=== PATIENT | female | born 1980 | race Two or more races ===

== ENCOUNTER 2022-08-13 17:14 | Emergency (ER) | payer MEDICAID ==
[~2022-08-13] VITALS: Ht 165.1 cm; Wt 58.0 kg
[2022-08-13 17:23] VITALS: BP 103/65; O2SAT 100
[2022-08-13] MEDS ORDERED: PREDNISONE 20MG TABLET PO STA (18:44)
[2022-08-13] MEDS ORDERED: IPRATROPIUM BROMIDE (0.02%) 0.5MG/2.5ML NEB HHN STA (18:44)
[2022-08-13] MEDS ORDERED: ALBUTEROL (0.083%) 2.5MG/3ML NEB HHN STA (18:44)
[2022-08-13 19:06] VITALS: PULSE 80; RESP 18
[2022-08-13 19:32] LABS: BASOPHILS % 2.8 % (0.0-2.0); HEMATOCRIT. 25.6 % (36.0-48.0); HEMOGLOBIN. 7.9 g/dL (12.0-16.0); LYMPHOCYTES % 29.6 % (20.0-50.0); MEAN CORPUSCULAR HEMOGLOBIN 21.2 pg (28.0-32.0); MEAN CORPUSCULAR VOLUME 68.9 fL (81.0-99.0); MEAN PLATELET VOLUME 7.1 fl (7.4-10.4); MONOCYTES % 6.6 % (2.0-8.0); PLATELET 421 x1000/uL (130-400); RED BLOOD CELL COUNT 3.72 mill/uL (4.2-5.4); RED CELL DISTRIBUTION WIDTH 16.6 % (11.6-14.6)
[2022-08-13 19:35] LABS: CHLORIDE 109 mEq/L (98-107)
[2022-08-13] MEDS ORDERED: P50 MT (21:23)
[2022-08-13] MEDS ORDERED: ALBU6.7H3 INH (21:23)
[2022-08-13 21:25] LABS: PLATELET ESTIMATE SLIGHTLY INCREASED
[2022-08-13 21:32] VITALS: PULSE 80; RESP 18; TEMP 97.7
== END 2022-08-13 21:33 | disposition home or self-care (01) ==
LOC: ER 17:49
DX: J45.901 Unspecified asthma with (acute) exacerbation (principal); D64.9 Anemia, unspecified
CPT/HCPCS: 80053; 83880; 85025; 84484; 36415; 71045; 94640; 93005; 99285; J7512; Z7610 ×3

== ENCOUNTER 2022-08-20 18:27 | Emergency (ER) | payer MEDICAID ==
[~2022-08-20] VITALS: Ht 162.6 cm; Wt 60.0 kg
[~2022-08-20 18:27] MED LIST: ALBU6.7H3 INH; P50 MT
[2022-08-20 18:53] VITALS: TEMP 98.6; O2SAT 98
[2022-08-20 20:23] LABS: BASOPHILS % 2.1 % (0.0-2.0); LYMPHOCYTES % 31.4 % (20.0-50.0); MEAN CORPUSCULAR HEMOGLOBIN 21.2 pg (28.0-32.0); MONOCYTES % 6.1 % (2.0-8.0); NEUTROPHILS % 57.4 % (40.0-76.0); PLATELET 384 x1000/uL (130-400); RED BLOOD CELL COUNT 3.77 mill/uL (4.2-5.4); RED CELL DISTRIBUTION WIDTH 17.1 % (11.6-14.6)
[2022-08-20 20:32] LABS: CHLORIDE 106 mEq/L (98-107)
[2022-08-20 20:34] LABS: PROTHROMBIN TIME 10.5 sec (9.6-11.0)
[2022-08-20 20:38] LABS: HCG SCREEN NEGATIVE
[2022-08-20 21:01] LABS: PLATELET ESTIMATE NORMAL
[2022-08-20] MEDS ORDERED: METOCLOPRAMIDE HCL 10MG/2ML VIAL IV ONE (22:45)
[2022-08-20] MEDS ORDERED: ACETAMINOPHEN 325MG TABLET PO ONE (22:45)
[2022-08-20] MEDS ORDERED: SODIUM CHLORIDE 0.9% 1,000 ML IV ONE (22:45)
[2022-08-21] MEDS ORDERED: ACET-2708 MT (01:11)
[2022-08-21 01:53] VITALS: BP 109/61; PULSE 67; RESP 13
== END 2022-08-21 01:57 | disposition home or self-care (01) ==
LOC: ER 18:27
DX: D64.9 Anemia, unspecified (principal); R10.32 Left lower quadrant pain
CPT/HCPCS: 99285; 74176; 96374; 96361; 80053; 84703; 83690; 85025; 85610; 86850; 86900; 86901; 36415; J2765; J7030

== ENCOUNTER 2023-03-12 12:55 | Emergency (ER) | payer MEDICAID ==
[~2023-03-12] VITALS: Ht 157.5 cm; Wt 54.0 kg
[~2023-03-12 12:55] MED LIST changes: +ACET-2708 MT; +FERR325T6 MT; -P50 MT
[2023-03-12 13:07] VITALS: O2SAT 99
[2023-03-12 14:09] LABS: CLARITY URINE CLEAR (CLEAR); COLOR URINE YELLOW (YELLOW); GLUCOSE URINE NEGATIVE (NEGATIVE); KETONES URINE NEGATIVE (NEGATIVE); LEUKOCYTE ESTERASE URINE NEGATIVE (NEGATIVE); NITRITE URINE NEGATIVE (NEGATIVE); OCCULT BLOOD URINE NEGATIVE (NEGATIVE); PROTEIN URINE NEGATIVE (NEGATIVE); SPECIFIC GRAVITY URINE 1.009 (1.005-1.030); UROBILINOGEN URINE 0.2 E.U./dL (0.2-1.0)
[2023-03-12 14:29] LABS: *AMPHETAMINES SCREEN URINE NEGATIVE (NEGATIVE); *BARBITURATES SCREEN URINE NEGATIVE (NEGATIVE); *BENZODIAZEPINES SCREEN URINE NEGATIVE (NEGATIVE); *COCAINE SCREEN URINE NEGATIVE (NEGATIVE); CANNABINOID URINE SCREEN NEGATIVE (NEGATIVE); ECSTASY MDMA SCREEN URINE NEGATIVE (NEGATIVE); METHADONE URINE SCREEN Neg (NEGATIVE); OPIATES URINE SCREEN NEGATIVE (NEGATIVE); PHENCYCLIDINE URINE SCREEN NEGATIVE (NEGATIVE)
[2023-03-12 14:39] LABS: BASOPHILS % 3.1 % (0.0-2.0); EOSINOPHILS % 4.6 % (0.0-5.0); HEMATOCRIT. 31.7 % (36.0-48.0); LYMPHOCYTES % 31.3 % (20.0-50.0); MEAN CORPUSCULAR HEMOGLOBIN 26.3 pg (28.0-32.0); MEAN CORPUSCULAR HGB CONC 31.5 g/dL (31.0-37.0); MEAN CORPUSCULAR VOLUME 83.4 fL (81.0-99.0); MEAN PLATELET VOLUME 7.5 fl (7.4-10.4); MONOCYTES % 6.6 % (2.0-8.0); NEUTROPHILS % 54.4 % (40.0-76.0); PLATELET 350 x1000/uL (130-400); RED BLOOD CELL COUNT 3.81 mill/uL (4.2-5.4); RED CELL DISTRIBUTION WIDTH 16.9 % (11.6-14.6); WHITE BLOOD COUNT 4.4 x1000/uL (4.5-11.0)
[2023-03-12] MEDS ORDERED: PROCHLORPERAZINE MALEATE 10MG TABLET PO ONE (14:45)
[2023-03-12] MEDS ORDERED: DIPHENHYDRAMINE 25MG CAPSULE PO ONE (14:45)
[2023-03-12] MEDS ORDERED: KETOROLAC 60MG/2ML VIAL IM ONE (14:45)
[2023-03-12 14:50] LABS: HCG SCREEN NEGATIVE
[2023-03-12 15:08] LABS: ALANINE AMINOTRANSFERASE 8 IU/L (10-49); ALBUMIN 4.2 g/dL (3.2-4.8); ASPARTATE AMINOTRANSFERASE 20 IU/L (<34); BILIRUBIN TOTAL 0.5 mg/dL (0.1-1.0); CARBON DIOXIDE 29 mEq/L (21-32); CHLORIDE 105 mEq/L (98-107); CREATININE 0.7 mg/dL (0.6-1.0); GLUCOSE 80 mg/dL (70-105); POTASSIUM 4.4 mEq/L (3.5-5.1); PROTEIN TOTAL 6.5 g/dL (6.0-8.3); SODIUM 137 mEq/L (136-145); UREA NITROGEN BLOOD 11 mg/dL (9-23)
[2023-03-12 15:13] LABS: TROPONIN I HIGH SENSITIVITY < 4 ng/L (3.0-34)
[2023-03-12] MEDS ORDERED: DIPHENHYDRAMINE 25MG CAPSULE PO NR (16:45)
[2023-03-12] MEDS ORDERED: KETOROLAC 30MG/ML VIAL IM NR (16:45)
[2023-03-12] MEDS ORDERED: TOPUD PO (17:18)
[2023-03-12] MEDS ORDERED: IBUP-2028 MT (17:18)
[2023-03-12 17:45] VITALS: BP 134/74; PULSE 79; RESP 20; TEMP 98
== END 2023-03-12 17:46 | disposition home or self-care (01) ==
LOC: ER 12:55
DX: G43.109 Migraine with aura, not intractable, without status migrainosus (principal); D64.9 Anemia, unspecified; Z86.73 Personal history of transient ischemic attack (TIA), and cerebral infarction without residual deficits
CPT/HCPCS: 80053; 80305; 81003; 81025; 84703; 83690; 85025; 84484; 36415; 71045; 70450; 93005; 96372; 99285; Q0163; Q0164; J1885; Z7610

== ENCOUNTER 2023-04-09 08:26 | Emergency (ER) | payer MEDICAID ==
[~2023-04-09] VITALS: Ht 162.6 cm; Wt 63.0 kg
[~2023-04-09 08:26] MED LIST changes: +IBUP-2028 MT; +TOPUD PO
[2023-04-09 08:42] VITALS: O2SAT 99
[2023-04-09 11:49] VITALS: BP 113/65; PULSE 68; RESP 18; TEMP 98
== END 2023-04-09 11:54 | disposition home or self-care (01) ==
LOC: ER 09:28
DX: T16.1XXA Foreign body in right ear, initial encounter (principal); D64.9 Anemia, unspecified; Z86.73 Personal history of transient ischemic attack (TIA), and cerebral infarction without residual deficits; Z79.899 Other long term (current) drug therapy; X58.XXXA Exposure to other specified factors, initial encounter; Y93.89 Activity, other specified; Y92.89 Other specified places as the place of occurrence of the external cause; Y99.8 Other external cause status
CPT/HCPCS: 99281

== ENCOUNTER 2023-10-20 15:50 | Emergency (ER) | payer MEDICAID ==
[~2023-10-20] VITALS: Ht 165.1 cm; Wt 60.0 kg
[2023-10-20 16:00] VITALS: TEMP 98.1; O2SAT 99
[2023-10-20 16:31] LABS: BASOPHILS % 2.9 % (0.0-2.0); DIFFERENTIAL COMMENT 0; EOSINOPHILS % 3.1 % (0.0-5.0); HEMATOCRIT. 27.1 % (36.0-48.0); HEMOGLOBIN. 8.4 g/dL (12.0-16.0); LYMPHOCYTES % 27.7 % (20.0-50.0); MEAN CORPUSCULAR HEMOGLOBIN 21.9 pg (28.0-32.0); MEAN CORPUSCULAR HGB CONC 30.9 g/dL (31.0-37.0); MEAN CORPUSCULAR VOLUME 70.9 fL (81.0-99.0); MEAN PLATELET VOLUME 7.1 fl (7.4-10.4); MONOCYTES % 6.3 % (2.0-8.0); PLATELET 399 x1000/uL (130-400); RED BLOOD CELL COUNT 3.83 mill/uL (4.2-5.4); RED CELL DISTRIBUTION WIDTH 16.5 % (11.6-14.6); WHITE BLOOD COUNT 5.9 x1000/uL (4.5-11.0)
[2023-10-20 16:34] LABS: CHLORIDE 107 mEq/L (98-107); POTASSIUM 3.7 mEq/L (3.5-5.1); SODIUM 138 mEq/L (136-145)
[2023-10-20 16:35] LABS: CALCIUM 9.6 mg/dL (8.7-10.4); CARBON DIOXIDE 27 mEq/L (21-32)
[2023-10-20 16:40] LABS: CREATININE 0.6 mg/dL (0.6-1.0); GLUCOSE 86 mg/dL (70-105); UREA NITROGEN BLOOD 8 mg/dL (9-23)
[2023-10-20 16:42] LABS: ALANINE AMINOTRANSFERASE 13 IU/L (10-49); ALBUMIN 4.7 g/dL (3.2-4.8); ASPARTATE AMINOTRANSFERASE 24 IU/L (<34); BILIRUBIN DIRECT 0.1 mg/dL (<=3.0); BILIRUBIN TOTAL 0.5 mg/dL (0.1-1.0); HCG SCREEN NEGATIVE; PROTEIN TOTAL 7.1 g/dL (6.0-8.3)
[2023-10-20] MEDS: ONDANSETRON 4MG ODT PO ONE (20:09)
[2023-10-20] MEDS: HYDROCODONE/ACETAMINOPHEN 7.5/325MG TABLET PO ONE (20:09)
[2023-10-20] MEDS: SODIUM CHLORIDE 0.9% 1,000 ML IV ONE (20:36)
[2023-10-20 20:40] VITALS: BP 100/55; PULSE 70; RESP 18
[2023-10-20] MEDS: MORPHINE SULFATE 4 MG/ML INJ (FOR IV/IM USE) IV ONE (20:40)
[2023-10-20] MEDS: ONDANSETRON HCL 4MG/2ML INJ IV ONE (20:41)
== END 2023-10-21 02:45 | disposition home or self-care (01) ==
LOC: ER 15:59
DX: R10.30 Lower abdominal pain, unspecified (principal); Z86.73 Personal history of transient ischemic attack (TIA), and cerebral infarction without residual deficits
CPT/HCPCS: 80076; 80048; 84703; 85025; 36415; 74176; 96361; 96374; 96375; 99285; Q0162; J2405; J2270; Z7610 ×4; J7030

== ENCOUNTER 2023-12-28 05:56 | Emergency (ER) | payer MEDICAID ==
[~2023-12-28] VITALS: Ht 167.6 cm; Wt 60.0 kg
[2023-12-28 06:04] VITALS: O2SAT 99
[2023-12-28 06:44] LABS: CHLORIDE 109 mEq/L (98-107); POTASSIUM 3.9 mEq/L (3.5-5.1); SODIUM 140 mEq/L (136-145)
[2023-12-28 06:45] LABS: CALCIUM 8.8 mg/dL (8.7-10.4); CARBON DIOXIDE 26 mEq/L (21-32)
[2023-12-28] MEDS: ONDANSETRON HCL 4MG/2ML INJ IV STA (06:47)
[2023-12-28] MEDS: KETOROLAC 30MG/ML VIAL IV STA (06:47)
[2023-12-28 06:50] LABS: CREATININE 0.6 mg/dL (0.6-1.0); GLUCOSE 103 mg/dL (70-105); UREA NITROGEN BLOOD 15 mg/dL (9-23)
[2023-12-28 06:52] LABS: BASOPHILS % 3.4 % (0.0-2.0); EOSINOPHILS % 3.4 % (0.0-5.0); HEMATOCRIT. 24.3 % (36.0-48.0); HEMOGLOBIN. 7.5 g/dL (12.0-16.0); LYMPHOCYTES % 23.9 % (20.0-50.0); MEAN CORPUSCULAR HEMOGLOBIN 21.2 pg (28.0-32.0); MEAN CORPUSCULAR HGB CONC 30.9 g/dL (31.0-37.0); MEAN CORPUSCULAR VOLUME 68.5 fL (81.0-99.0); MEAN PLATELET VOLUME 7.4 fl (7.4-10.4); NEUTROPHILS % 64.3 % (40.0-76.0); PLATELET 397 x1000/uL (130-400); RED BLOOD CELL COUNT 3.55 mill/uL (4.2-5.4); RED CELL DISTRIBUTION WIDTH 17.3 % (11.6-14.6); WHITE BLOOD COUNT 3.8 x1000/uL (4.5-11.0)
[2023-12-28 06:56] LABS: TROPONIN I HIGH SENSITIVITY < 4 ng/L (3.0-34)
[2023-12-28] MEDS: METOCLOPRAMIDE HCL 10MG/2ML VIAL IV ONE (07:00)
[2023-12-28 07:13] LABS: DIFFERENTIAL COMMENT 1
[2023-12-28 07:14] LABS: ADD RBC MORPHOLOGY YES
[2023-12-28 07:15] LABS: CLARITY URINE CLEAR (CLEAR); COLOR URINE YELLOW (YELLOW); GLUCOSE URINE NEGATIVE (NEGATIVE); KETONES URINE NEGATIVE (NEGATIVE); LEUKOCYTE ESTERASE URINE NEGATIVE (NEGATIVE); NITRITE URINE NEGATIVE (NEGATIVE); OCCULT BLOOD URINE NEGATIVE (NEGATIVE); PH URINE 8.5 (4.5-8.0); PROTEIN URINE TRACE (NEGATIVE)
[2023-12-28 07:39] LABS: BACTERIA URINE NONE SEEN; RBC URINE NONE SEEN /hpf (0-2); SQUAMOUS EPITHELIAL CELL URINE NONE SEEN /lpf (RARE/1+); WBC URINE NONE SEEN /hpf (0-2)
[2023-12-28] MEDS: SODIUM CHLORIDE 0.9% 1,000 ML IV ONE (08:34)
[2023-12-28 08:44] LABS: HCG SCREEN NEGATIVE
[2023-12-28] MEDS ORDERED: ONDA4TAB50 PO (08:50)
[2023-12-28] MEDS: MECLIZINE 25MG TABLET PO ONE (10:01)
[2023-12-28 10:02] VITALS: BP 119/70; PULSE 71; RESP 20; TEMP 36.78072; O2SAT 99
[2023-12-28 14:54] LABS: ANISOCYTOSIS 1+; HYPOCHROMASIA 2+; MICROCYTOSIS 3+; PLATELET ESTIMATE NORMAL
== END 2023-12-28 10:03 | disposition home or self-care (01) ==
LOC: ER 05:56
DX: R11.2 Nausea with vomiting, unspecified (principal); R51.9 Headache, unspecified; Z79.899 Other long term (current) drug therapy; Z98.890 Other specified postprocedural states
CPT/HCPCS: 80048; 81003; 81025; 84703; 85025; 84484; 36415; 93005; 96361; 96374; 96375; 99284; J1885; J2765; J2405; J7030; Z7610

== ENCOUNTER 2024-03-12 14:19 | Emergency (ER) | payer MEDICAID ==
[~2024-03-12] VITALS: Ht 157.5 cm; Wt 60.0 kg
[~2024-03-12 14:19] MED LIST changes: +ONDA4TAB50 PO
[2024-03-12 14:39] VITALS: O2SAT 99
[2024-03-12 15:00] VITALS: BP 96/66; TEMP 98.7
[2024-03-12] MEDS ORDERED: ALBUTEROL (0.083%) 2.5MG/3ML NEB HHN STA (15:33)
[2024-03-12] MEDS ORDERED: IPRATROPIUM BROMIDE (0.02%) 0.5MG/2.5ML NEB HHN STA (15:33)
[2024-03-12 17:45] VITALS: PULSE 96; RESP 24; O2SAT 97
[2024-03-12] MEDS: ALBUTEROL (0.083%) 2.5MG/3ML NEB HHN NR (18:08)
[2024-03-12] MEDS: IPRATROPIUM BROMIDE (0.02%) 0.5MG/2.5ML NEB HHN NR (18:08)
[2024-03-12] MEDS ORDERED: PRED5TAB48 MT (19:26)
[2024-03-12] MEDS: IPRATROPIUM/ALBUTEROL 0.5-3(2.5)MG/3ML NEB HHN ONE (20:07)
[2024-03-12 20:10] VITALS: PULSE 88; RESP 20; O2SAT 98
== END 2024-03-12 20:54 | disposition home or self-care (01) ==
LOC: ER 14:19
DX: J45.901 Unspecified asthma with (acute) exacerbation (principal); I10 Essential (primary) hypertension; Z98.890 Other specified postprocedural states; Z98.84 Bariatric surgery status; Z79.52 Long term (current) use of systemic steroids
CPT/HCPCS: 94640; 94070; 99283; Z7610 ×4

== ENCOUNTER 2024-09-29 09:12 | Emergency (ER) | payer MEDICAID ==
[~2024-09-29] VITALS: Ht 162.6 cm; Wt 61.0 kg
[~2024-09-29 09:12] MED LIST changes: +PRED5TAB48 MT
[2024-09-29 09:24] VITALS: O2SAT 100
[2024-09-29] MEDS ORDERED: TOPUD MT (11:01)
[2024-09-29] MEDS ORDERED: SILV20CR13 TP (11:01)
[2024-09-29 11:09] VITALS: BP 129/82; PULSE 84; RESP 18; TEMP 36.7; O2SAT 100
== END 2024-09-29 11:10 | disposition home or self-care (01) ==
LOC: ER 09:12
DX: T23.202A Burn of second degree of left hand, unspecified site, initial encounter (principal); T23.201A Burn of second degree of right hand, unspecified site, initial encounter; J45.909 Unspecified asthma, uncomplicated; I10 Essential (primary) hypertension; Z79.899 Other long term (current) drug therapy; Z98.890 Other specified postprocedural states; X58.XXXA Exposure to other specified factors, initial encounter; Y93.89 Activity, other specified; Y92.89 Other specified places as the place of occurrence of the external cause; Y99.8 Other external cause status
CPT/HCPCS: 99283

== ENCOUNTER 2025-01-17 09:25 | Emergency (ER) | payer MEDICAID ==
[~2025-01-17] VITALS: Ht 167.6 cm; Wt 73.0 kg
[~2025-01-17 09:25] MED LIST changes: +SILV20CR13 TP; +TOPUD MT
[2025-01-17] MEDS ORDERED: IPRATROPIUM BROMIDE (0.02%) 0.5MG/2.5ML NEB HHN ONE (10:15)
[2025-01-17] MEDS ORDERED: METHYLPREDNISOLONE SOD SUCC 125MG/2ML (ACT-O-VIAL) IM ONE (10:15)
[2025-01-17] MEDS ORDERED: ALBUTEROL (0.083%) 2.5MG/3ML NEB HHN ONE (10:15)
[2025-01-17 10:19] LABS: BASOPHILS % 0.2 % (0.0-2.0); EOSINOPHILS % 2.9 % (0.0-5.0); HEMATOCRIT. 24.5 % (36.0-48.0); HEMOGLOBIN. 7.1 g/dL (12.0-16.0); LYMPHOCYTES % 23.4 % (20.0-50.0); MEAN PLATELET VOLUME 6.7 fl (7.4-10.4); MONOCYTES % 7.7 % (2.0-8.0); NEUTROPHILS % 65.8 % (40.0-76.0); PLATELET 402 x1000/uL (130-400); RED BLOOD CELL COUNT 3.79 mill/uL (4.2-5.4); RED CELL DISTRIBUTION WIDTH 18.1 % (11.6-14.6)
[2025-01-17 10:25] LABS: ADD RBC MORPHOLOGY YES
[2025-01-17] MEDS: BENZONATATE 200MG CAPSULE PO ONE (10:43)
[2025-01-17] MEDS ORDERED: ALBU90AE INH (10:43)
[2025-01-17] MEDS ORDERED: METH4TAB95 MT (10:43)
[2025-01-17] MEDS: ALBUTEROL (0.083%) 2.5MG/3ML NEB HHN NR (10:54)
[2025-01-17] MEDS: IPRATROPIUM BROMIDE (0.02%) 0.5MG/2.5ML NEB HHN NR (10:54)
[2025-01-17 10:55] VITALS: PULSE 80; RESP 20; O2SAT 98
[2025-01-17] MEDS: METHYLPREDNISOLONE SOD SUCC 125MG/2ML (ACT-O-VIAL) IM NR (10:59)
[2025-01-17 11:09] LABS: PLATELET ESTIMATE NORMAL
[2025-01-17 11:30] VITALS: BP 103/55; PULSE 79; RESP 20; TEMP 36.7; O2SAT 98
== END 2025-01-17 11:31 | disposition home or self-care (01) ==
LOC: ER 09:25
DX: J45.901 Unspecified asthma with (acute) exacerbation (principal); D50.9 Iron deficiency anemia, unspecified; I10 Essential (primary) hypertension
CPT/HCPCS: 85025; 36415; 71045; 94640; 93005; 96372; 99285; J2919; Z7610 ×3; 94070